=== PATIENT | female | born 1950 | race Caucasian/White ===

== ENCOUNTER → 2017-08-27 | Outpatient (CLI) | payer BC ==
--- NOTE | 2017-08-27 15:16 | RAD ---
DATE: 08/27/2017 EXAM: MAMMO JANE SCREENING BILATERAL HISTORY: Routine screening COMPARISON: 05/10/2016 This study was interpreted with the benefit of Computerized Aided Detection (CAD). The breast parenchyma shows scattered fibroglandular densities. Breast parenchyma level B. FINDINGS: 2-D and 3-D tomosynthesis imaging was performed in CC and MLO projections. No new or enlarging breast densities are seen. No suspicious microcalcifications are evident. IMPRESSION: Stable mammograms without evidence of malignancy. BI-RADS CATEGORY: 1 NEGATIVE RECOMMENDED FOLLOW-UP: 12M 12 MONTH FOLLOW-UP PQRS compliance statement: Patient information was entered into a reminder system with a target due date for the next mammogram. Mammography is a sensitive method for finding small breast cancers, but it does not detect them all and is not a substitute for careful clinical examination. A negative mammogram does not negate a clinically suspicious finding and should not result in delay in biopsying a clinically suspicious abnormality. "Our facility is accredited by the [employer] Mammography [employer]."
== END | disposition home or self-care (01) ==
LOC: MAMMO 11:10
PROVIDERS: ATTEND Internal Medicine
DX: Z12.31 Encounter for screening mammogram for malignant neoplasm of breast (principal)
CPT/HCPCS: 77063; 77067

== ENCOUNTER → 2019-06-29 | Outpatient (CLI) | payer BC, MEDICARE ==
--- NOTE | 2019-06-30 08:18 | RAD ---
DATE: June 29, 2019 EXAM: MAMMO JANE SCREENING BILATERAL HISTORY: Screening study. COMPARISON: 2015 and 2017 This study was interpreted with the benefit of Computerized Aided Detection (CAD). 2-D digital mammographic views of both breasts were performed in the CC and MLO projections. 3-D digital tomosynthesis images of both breasts were performed in the CC and MLO projections and reviewed on a computer workstation. FINDINGS: Breast Density: SCATTERED The breast parenchyma shows scattered fibroglandular densities. Breast parenchyma level B.. There are no dominant suspicious masses, suspicious microcalcifications or evidence of architectural distortion. IMPRESSION: No mammographic indicators for malignancy. BI-RADS CATEGORY: 1 NEGATIVE RECOMMENDED FOLLOW-UP: 12M 12 MONTH FOLLOW-UP PQRS compliance statement: Patient information was entered into a reminder system with a target due date June 30, 2020 for the next mammogram. Mammography is a sensitive method for finding small breast cancers, but it does not detect them all and is not a substitute for careful clinical examination. A negative mammogram does not negate a clinically suspicious finding and should not result in delay in biopsying a clinically suspicious abnormality. "Our facility is accredited by the [employer] Mammography [employer]." The patient's breast density may affect the ability of mammography to detect breast cancer. There are 4 categories of breast density, A, B, C and D. Breast density A means that most of the breast tissue is replaced with adipose tissue and therefore is not dense. Breast density B means that the breast tissue is mildly dense and scattered. Breast density C means that the breast tissue is heterogeneously dense. Breast density D means that the breast tissue is very dense. Breast densities especially C and D may decrease the sensitivity of mammography to detect breast cancer. Therefore, the patient may benefit from 3-D breast mammography (3D breast tomography) as a part of their screening mammogram. Insurance may or may not pay for this additional imaging. The patient's breast density based on today's mammogram is category B.
== END | disposition home or self-care (01) ==
LOC: MAMMO 13:09
PROVIDERS: ATTEND Internal Medicine
DX: Z12.31 Encounter for screening mammogram for malignant neoplasm of breast (principal)
CPT/HCPCS: 77063; 77067

== ENCOUNTER 2020-02-25 08:08 | Inpatient (IN) | payer BC, MEDICARE ==
[2020-02-25] VITALS (7 sets, daily range): BP systolic 136–188; BP diastolic 79–116
[~2020-02-25] VITALS: Ht 157.5 cm; Wt 73.9 kg
--- NOTE | 2020-02-25 09:21 | RAD ---
CT CODE STROKE HEAD WO History: Reason: RT ARM NUMBNESS, DIZZY, DIFFICTULY SWALLOWING / Spl. Instructions: / History: Comparison: None. Technique: Noncontrast CT imaging was performed of the head. Exposure: One or more of the following individualized dose reduction techniques were utilized for this examination: 1. Automated exposure control 2. Adjustment of the mA and/or kV according to patient size 3. Use of iterative reconstruction technique. Findings: No intracranial hemorrhage. No mass effect. No hydrocephalus. Extra-axial spaces are unremarkable. Imaged orbits are unremarkable. Imaged paranasal sinuses and mastoid air cells are clear. No acute calvarial fracture. Impression: 1. No acute intracranial abnormality. FOR INTERNAL CODING PURPOSES Critical result: Findings discussed with ED [facility] at 02/25/2020 9:17 AM. RESULT CODE: (C) 1. Electronically signed by: Dada Caban DO (02/25/2020 9:18 AM) [id number]
--- NOTE | 2020-02-25 09:22 | RAD ---
EXAMINATION: CHEST AP ONLY CLINICAL HISTORY: Reason: WEAKNESS / Spl. Instructions: / History: EXAM DATE/TIME: 02/25/2020 12:00 AM COMPARISON: 10/27/2013 FINDINGS: Lines, Tubes, and Devices: None. Cardiomediastinal Silhouette: Within normal limits. Lungs and Pleura: No evidence of focal airspace consolidation or pleural effusion. Minimal curvilinear subsegmental atelectasis and/or scarring of right lung base. Pulmonary vasculature unremarkable. Bones and Soft Tissues: No acute osseous abnormality. IMPRESSION: No evidence of acute cardiopulmonary abnormality. Electronically signed by: Jacky Bennett DO (02/25/2020 9:19 AM) [id number]
[2020-02-25 09:41] LABS: BASO # 0.1 x10^3/uL (0.0-0.2); BASO % 1 % (0-3); EOS % 0 % (0-3); HEMATOCRIT 44.9 % (36.0-47.0); HEMOGLOBIN 14.5 g/dL (12.0-15.5); LYMPH # 1.7 x10^3/uL (1.0-4.8); LYMPH % 17 % (24-48); MEAN CORPUSCULAR HEMOGLOBIN 29 pg (25-35); MEAN CORPUSCULAR HGB CONC 32 g/dL (31-37); MEAN CORPUSCULAR VOLUME 91 fL (79-100); MONO # 0.4 x10^3/uL (0.0-1.1); MONO % 4 % (0-9); NEUT % 78 % (31-73); PLATELET COUNT 200 x10^3/uL (140-400); RED BLOOD COUNT 4.97 x10^6/uL (3.50-5.40); RED CELL DISTRIBUTION WIDTH 13.3 % (11.5-14.5); WHITE BLOOD COUNT 10.2 x10^3/uL (4.0-11.0)
[2020-02-25 09:50] LABS: CALCIUM 9.6 mg/dL (8.5-10.1); GFR 55.3; POTASSIUM 3.7 mmol/L (3.5-5.1)
[2020-02-25] MEDS ORDERED: IOHEXOL 350 MG/ML 100 ML VIAL. IV ONE (10:00)
[2020-02-25] MEDS ORDERED: IV NORMAL SALINE 1,000ML 1,000 ML IV ONE (10:00)
--- NOTE | 2020-02-25 10:13 | EKG ---
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
[2020-02-25] MEDS ORDERED: ASPIRIN 325 MG TABLET PO ONE (10:30)
--- NOTE | 2020-02-25 10:50 | RAD ---
EXAM: CT Angiogram of the Head and Neck INDICATION: Reason: dizineess, R arm numbness TECHNIQUE: CT images were obtained through the head per standard CTA protocol. Multiplanar and 3D reformatted images were generated from the CT dataset on an independent workstation. All CT scans performed at this facility utilize dose optimization techniques as appropriate to the exam, including the following: Automated exposure control and adjustment of the mA and/or KV according to patient size (this includes techniques or standardized protocols for targeted exams where dose is indication/reason for exam). IV CONTRAST: Administered COMPARISON: None FINDINGS: CTA HEAD: No high-grade large vessel stenosis, proximal or branch vessel occlusion, aneurysm, or vascular malformation. However, hypovascular mass in the left middle cranial fossa anterior to the temporal tip with a broad dural attachment along the left sphenoid wing is noted measuring 2.0 x 1.1 cm and 1.5 cm craniocaudal. It has parasitized arterial feeders from the left MCA M2 branches. ANTERIOR CIRCULATION: Anterior and middle cerebral arteries are widely patent. ANTERIOR COMMUNICATING ARTERY: Patent. POSTERIOR COMMUNICATING ARTERIES: Present bilaterally and patent. POSTERIOR CIRCULATION: Vertebral and basilar arteries are widely patent. Bilateral posterior inferior cerebellar arteries (PICAs), anterior inferior cerebellar arteries (AICAs), and superior cerebellar arteries (SCAs) are visualized and patent. OTHER: No abnormal brain parenchymal enhancement. The paranasal sinuses, mastoid air cells, and tympanic cavities are clear. NECK CTA: AORTA: 3 vessel configuration of arch. No dissection or acute aortic injury. No hemodynamically significant great vessel origin stenosis. RIGHT CAROTID: Common and internal carotid arteries are widely patent, without evidence of flow limiting stenosis or dissection. LEFT CAROTID: Common and internal carotid arteries are widely patent, without evidence of flow limiting stenosis or dissection. VERTEBRAL ARTERIES: Codominant. No evidence of dissection or flow limiting stenosis. SUBCLAVIAN ARTERIES:Subclavian arteries are patent without stenosis. SOFT TISSUES: Soft tissues are unremarkable. Lung apices are clear. Where applicable, evaluation of ICA stenosis was performed using NASCET criteria, where the site of greatest stenosis is compared to the diameter of the ICA distal to the carotid bulb. 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 Otherwise normal CTA of the head and neck. FOR INTERNAL CODING PURPOSES Critical result: Findings discussed with SAMUEL DE JESUS at 02/25/2020 10:45 AM. RESULT CODE: (C) Electronically signed by: Radha Barnes MD (02/25/2020 10:47 AM) [id number]
--- NOTE | 2020-02-25 10:58 | PHYS DOC ---
General Adult EDM: Chief Complaint: DIZZY/LIGHT HEADED HPI: HPI: History obtained from the patient. Patient is a [age]-year-old female past medical history significant for hypertension presents with chief complaint dizziness and left arm numbness. Patient states that approximately 4 hours prior to arrival she began developing room spinning sensation. States it is somewhat difficult ambulate and falls to the left. She also notes left arm numbness. Denies any weakness. Denies falls or head trauma. Denies syncope. Denies headache. Denies any vomiting. Denies ringing in the ears. Denies any chest pain or shortness of breath. Denies any history of stroke. Does note that she has felt generally fatigued as well with some sore throat. Denies known exposure to coronavirus. States she has been taking her medication as prescribed. Review of Systems: Review of Systems: Constitutional: Denies fever or chills Eyes: Denies change in visual acuity HENT: Denies nasal congestion or sore throat Respiratory: Denies cough or shortness of breath Cardiovascular: Denies chest pain or edema GI: Denies abdominal pain, nausea, vomiting, bloody stools or diarrhea : Denies dysuria Musculoskeletal: Denies back pain or joint pain Integument: Denies rash Neurologic: Positive for dizziness and numbness Endocrine: Denies polyuria or polydipsia Lymphatic: Denies swollen glands Psychiatric: Denies depression or anxiety Heart Score: Risk Factors: Risk Factors: DM, Current or recent (<one month) smoker, HTN, HLP, family history of CAD, obesity. Risk Scores: Score 0 - 3: 2.5% MACE over next 6 weeks - Discharge Home Score 4 - 6: 20.3% MACE over next 6 weeks - Admit for Clinical Observation Score 7 - 10: 72.7% MACE over next 6 weeks - Early Invasive Strategies Current Medications: Current Meds: Current Medications Medications (Trade) Dose Ordered Sig/Jyothi Start Time Stop Time Status Last Admin Dose Admin Aspirin (Shubham Aspirin) 325 mg 1X ONCE 02/25/20 10:30 02/25/20 10:31 DC Iohexol (Omnipaque 350 Mg/ml) 100 ml 1X ONCE 02/25/20 10:00 02/25/20 10:03 DC Sodium Chloride 1,000 ml @ 1,000 mls/hr 1X ONCE 02/25/20 10:00 02/25/20 10:59 Allergies: Allergies: Allergies Uncoded Allergies Type Severity Reaction Last Updated Verified PENICILLIN Allergy Unknown Diarrhea 02/25/20 Physical Exam: PE: Constitutional: Well developed, well nourished, no acute distress, non-toxic appearance. [] HENT: Normocephalic, atraumatic, bilateral external ears normal, oropharynx moist, no oral exudates, nose normal. [] Eyes: PERRLA, EOMI, conjunctiva normal, no discharge. [] Neck: Normal range of motion, no tenderness, supple, no stridor. [] Cardiovascular:Heart rate regular rhythm, no murmur [] Lungs & Thorax: Bilateral breath sounds clear to auscultation [] Abdomen: soft, no tenderness, no masses, no pulsatile masses. [] Skin: Warm, dry, no erythema, no rash. [] Back: No tenderness, no CVA tenderness. [] Extremities: No tenderness, no cyanosis, no clubbing, ROM intact, no edema. [] Neurologic alert with intact cognitive function. No aphasia, dysarthria, or neglect. GCS 15. Pupils 3 mm briskly reactive b/l. No APD present. Cranial nerves 2-12 grossly intact; no facial asymmetry present, tongue midline, shoulder shrugging strength intact. Strength 5/5 and symmetric throughout. Light touch sensation intact throughout. Cerebellar testing appropriate without evidence of dysdiadochokinesia. DTR's 2+ in all 4 extremities. Negative pronator drift bilaterally. Gait deferred Psychologic: Affect normal, judgement normal, mood normal. [] Current Patient Data: Labs: Laboratory Tests Test 02/25/20 09:10 02/25/20 09:18 Glucose (Fingerstick) 167 mg/dL (70-99) H White Blood Count 10.2 x10^3/uL (4.0-11.0) Red Blood Count 4.97 x10^6/uL (3.50-5.40) Hemoglobin 14.5 g/dL (12.0-15.5) Hematocrit 44.9 % (36.0-47.0) Mean Corpuscular Volume 91 fL (79-100) Mean Corpuscular Hemoglobin 29 pg (25-35) Mean Corpuscular Hemoglobin Concent 32 g/dL (31-37) Red Cell Distribution Width 13.3 % (11.5-14.5) Platelet Count 200 x10^3/uL (140-400) Neutrophils (%) (Auto) 78 % (31-73) H Lymphocytes (%) (Auto) 17 % (24-48) L Monocytes (%) (Auto) 4 % (0-9) Eosinophils (%) (Auto) 0 % (0-3) Basophils (%) (Auto) 1 % (0-3) Neutrophils # (Auto) 8.0 x10^3uL (1.8-7.7) H Lymphocytes # (Auto) 1.7 x10^3/uL (1.0-4.8) Monocytes # (Auto) 0.4 x10^3/uL (0.0-1.1) Eosinophils # (Auto) 0.0 x10^3/uL (0.0-0.7) Basophils # (Auto) 0.1 x10^3/uL (0.0-0.2) Sodium Level 141 mmol/L (136-145) Potassium Level 3.7 mmol/L (3.5-5.1) Chloride Level 102 mmol/L (98-107) Carbon Dioxide Level 26 mmol/L (21-32) Anion Gap 13 (6-14) Blood Urea Nitrogen 15 mg/dL (7-20) Creatinine 1.0 mg/dL (0.6-1.0) Estimated GFR (Cockcroft-Gault) 55.3 Glucose Level 175 mg/dL (70-99) H Calcium Level 9.6 mg/dL (8.5-10.1) Magnesium Level 2.0 mg/dL (1.8-2.4) Troponin I Quantitative 0.029 ng/mL (0-0.055) EKG: EKG: [] EKG consistent with sinus tachycardia. Left axis noted. Intervals normal. No acute ischemic changes appreciated. ST flattening appreciated in the lateral precordial leads. Radiology/Procedures: Radiology/Procedures: [address] [address] IMAGING REPORT Signed PATIENT: ALIREZA CHAO ACCOUNT: [id number] : 1950 LOCATION: ER AGE: 69 SEX: F EXAM STATUS: REG ER ORD. PHYSICIAN: SAMUEL DE JESUS DO REASON: dizineess, R arm numbness PROCEDURE: CT ANGIOGRAPHY HEAD AND NECK EXAM: CT Angiogram of the Head and Neck INDICATION: Reason: dizineess, R arm numbness TECHNIQUE: CT images were obtained through the head per standard CTA protocol. Multiplanar and 3D reformatted images were generated from the CT dataset on an independent workstation. All CT scans performed at this facility utilize dose optimization techniques as appropriate to the exam, including the following: Automated exposure control and adjustment of the mA and/or KV according to patient size (this includes techniques or standardized protocols for targeted exams where dose is indication/reason for exam). IV CONTRAST: Administered COMPARISON: None FINDINGS: CTA HEAD: No high-grade large vessel stenosis, proximal or branch vessel occlusion, aneurysm, or vascular malformation. However, hypovascular mass in the left middle cranial fossa anterior to the temporal tip with a broad dural attachment along the left sphenoid wing is noted measuring 2.0 x 1.1 cm and 1.5 cm craniocaudal. It has parasitized arterial feeders from the left MCA M2 branches. ANTERIOR CIRCULATION: Anterior and middle cerebral arteries are widely patent. ANTERIOR COMMUNICATING ARTERY: Patent. POSTERIOR COMMUNICATING ARTERIES: Present bilaterally and patent. POSTERIOR CIRCULATION: Vertebral and basilar arteries are widely patent. Bilateral posterior inferior cerebellar arteries (PICAs), anterior inferior cerebellar arteries (AICAs), and superior cerebellar arteries (SCAs) are visualized and patent. OTHER: No abnormal brain parenchymal enhancement. The paranasal sinuses, mastoid air cells, and tympanic cavities are clear. NECK CTA: AORTA: 3 vessel configuration of arch. No dissection or acute aortic injury. No hemodynamically significant great vessel origin stenosis. RIGHT CAROTID: Common and internal carotid arteries are widely patent, without evidence of flow limiting stenosis or dissection. LEFT CAROTID: Common and internal carotid arteries are widely patent, without evidence of flow limiting stenosis or dissection. VERTEBRAL ARTERIES: Codominant. No evidence of dissection or flow limiting stenosis. SUBCLAVIAN ARTERIES:Subclavian arteries are patent without stenosis. SOFT TISSUES: Soft tissues are unremarkable. Lung apices are clear. Where applicable, evaluation of ICA stenosis was performed using NASCET criteria, where the site of greatest stenosis is compared to the diameter of the ICA distal to the carotid bulb. 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 Otherwise normal CTA of the head and neck. FOR INTERNAL CODING PURPOSES Critical result: Findings discussed with SAMUEL DE JESUS at 02/25/2020 10:45 AM. RESULT CODE: (C) Electronically signed by: Mary Barnes MD (02/25/2020 10:47 AM) [id number] DICTATED AND SIGNED BY: MARY BARNES MD DATE: 02/25/20 1047 CC: SAMUEL DE JESUS DO; CARLO HARRIS MD ~ [] Course & Med Decision Making: Course & Med Decision Making Pertinent Labs and Imaging studies reviewed. (See chart for details) [] Patient is a 69-year-old female who presents with chief complaint of dizziness and left arm numbness. Initial NIH notable for 1-2 sensory loss. No focal deficits appreciated. Given the patient's symptoms and acuity of onset strokelike was called. Noncontrast head CT was unremarkable. Given the patient reported dizziness and concern for posterior circulation involvement CT angiogram of the head neck was also obtained. 2 cm meningioma noted in the left middle cerebral fossa. Unclear whether this causing her symptoms. I did discuss the case with neurosurgical RIKA Islas. After discussion with Dr. Fuller patient does not require emergent neurosurgical consultation. MRI however is indicated. I did also discuss case with neurology at [facility]. Patient will be hospitalized at [facility] for further care. Patient did decline aspirin administration in the emergency department. Aidaon Disclaimer: Greg Disclaimer: This electronic medical record was generated, in whole or in part, using a voice recognition dictation system. Departure Departure: Impression: Primary Impression: Dizziness Additional Impressions: Numbness and tingling in left arm Meningioma Disposition: ADMITTED INPT THIS HOSP Condition: STABLE Referrals: CARLO HARRIS MD (PCP) NIHSS - ED NIH Stroke Scale: NIH Stroke Scale Response (Comments) Value Level of Consciousness: 0 Alert/Responsive 0 LOC Questions: 0 Answers both correctly 0 LOC Commands: 0 Performs both tasks 0 Best Gaze: 0 Normal 0 Visual: 0 No visual loss 0 Facial Palsy: 0 Normal, symmetrical 0 Motor - Left Arm 0 No drift 0 Motor - Right Arm 0 No drift 0 Motor - Left Leg 0 No drift 0 Motor: Right Leg 0 No drift 0 Limb Ataxia: 0 Absent 0 Sensory: 1 Mid to moderate loss 1 Best Language: 0 Normal 0 Dysathria: 0 Normal 0 Extinction and Inattention: 0 Normal 0 Total 1 SAMUEL DE JESUS DO Feb 25, 2020 10:58
[2020-02-25 11:50] LABS: BILIRUBIN,URINE NEG (NEG); CLARITY,URINE CLEAR; COLOR,URINE STRAW; GLUCOSE,URINE NEG (NEG)
[2020-02-25 11:51] LABS: BACTERIA,URINE FEW /HPF (0-FEW); NITRITE,URINE NEG (NEG); RBC,URINE 0 /HPF (0-2); SQUAMOUS EPITHELIAL CELL,UR FEW /LPF; UROBILINOGEN,URINE 0.2 mg/dL (0.2 mg/dL); WBC,URINE 0 /HPF (0-4)
--- NOTE | 2020-02-25 14:15 | NUR ---
NURSING NOTE CONSULT CONSULT PAGED TO DR BEEBE. CANDIE GONZALEZ.
--- NOTE | 2020-02-25 14:52 | NUR ---
NURSING NOTE ADMIT PT ADMIT TO ROOM 120 FOR DX OF DIZZINESS WITH CONSULT TO SPEECH AND DR BEEBE. PT C/O WEAKNESS, RIGHT ARM NUMBNESS, HOARSENESS, SINUS DRAINAGE, TROUBLE BREATHING, AND TROUBLE SWALLOWING. PT REPORTS HX OF GERD, HLD, HERNIA, HYSTER, HTN, RECURRENT LARYNGITIS. PT FAILED BEDSIDE SWALLOW STUDY IN ED. SPEECH CONSULTED. PT CURRENTLY NPO. PT IS CURRENTLY A PUI. WILL CONTINUE TO MONITOR. CANDIE GONZALEZ.
[2020-02-25] MEDS ORDERED: HYDR12.58 PO (14:58)
[2020-02-25] MEDS ORDERED: ATOR20TA58 PO (14:58)
[2020-02-25] MEDS ORDERED: AMIT25TA PO (14:58)
[2020-02-25] MEDS ORDERED: ESTR1.25 PO (14:58)
[2020-02-25] MEDS ORDERED: METO-247 PO (14:58)
[2020-02-25] MEDS ORDERED: ESOM40CA PO (14:58)
[2020-02-25] MEDS ORDERED: ALPR0.254 PO (14:58)
[2020-02-25] MEDS ORDERED: VALA10008 PO (14:58)
[2020-02-25] MEDS ORDERED: LOSA50TA86 PO (14:58)
--- NOTE | 2020-02-25 15:12 | HP ---
ADMIT DATE: 02/25/2020 HISTORY OF PRESENT ILLNESS: The patient is a 69-year-old female patient who presented to the Emergency Room this morning with a complaint of feeling dizzy with left arm numbness. The patient states that approximately 4 hours prior to arrival, she had begun developing room spinning sensation, states it is somewhat difficult to ambulate and falls to the left. She also notes left arm numbness. Denies any weakness. Denies any falls or head trauma. Denied any syncope. Denies any headache. She does note that she has felt generally fatigued as well with some sore throat. She apparently has had her flu shot as well as shingles shot at the same time a week ago and for 4 days, she developed a bad headache. She also complained of hoarseness of voice, but she said that she has also hiatal hernia and acid reflux that caused hoarseness of voice. She was followed by Dr. Aranda and she was on proton pump inhibitors twice a day and now she is getting it once a day. She was basically evaluated extensively in the Emergency Room and has had lab work, which basically is unremarkable. Urinalysis was unremarkable. 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 The patient was admitted for further evaluation and treatment. PAST MEDICAL HISTORY: Significant for hypertension, hyperlipidemia, hiatal hernia and gastroesophageal reflux disease. PAST SURGICAL HISTORY: Significant for total abdominal hysterectomy, bilateral salpingo-oophorectomy. ALLERGIES: SHE IS ALLERGIC TO PENICILLIN. MEDICATIONS: She is currently on following medications: The patient is Dr. Gamez's and we will call his office to get the list of medication. FAMILY HISTORY: She has one brother older and has coronary artery disease and status post myocardial infarction x 2. Father at the age of 75 because of liver cirrhosis. Mother of lung cancer. SOCIAL HISTORY: She is , has 2 sons. Never smoked. Drinks alcohol very occasionally. 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 She has retired about 3 years ago. REVIEW OF SYSTEMS: The patient does have blurring of vision and had history of diplopia before. Denied any glaucoma or macular degeneration. Denied any earache, tinnitus or sensorineural deafness. Denied any nosebleeds, stuffy nose or postnasal drip. Denied any sore throat, sore tongue, toothache, hoarseness of voice, but she did complain of difficulty swallowing and hoarseness of voice. Denied any nausea, vomiting, diarrhea or constipation. Denied any hematemesis, melena or hematochezia. Denied any dysuria, frequency or hematuria. Denied any chest pain, shortness of breath, orthopnea or paroxysmal nocturnal dyspnea. Denied any cough, phlegm or hemoptysis. PHYSICAL EXAMINATION: GENERAL: On arrival to the Emergency Room, she looked well and was clearly in no apparent respiratory distress. No pallor, jaundice, cyanosis or thyromegaly. No jugular venous distention. No lower limb edema. VITAL SIGNS: Her heart rate was 106, blood pressure was 181/104, temperature was 98.1, respiratory rate was 21 and oxygen saturation was 96% on room air. HEAD, EYES, EARS, NOSE AND THROAT: Showed normocephalic, atraumatic. NECK: Supple. HEART: Showed normal first and second heart sounds. No gallop or murmur. CHEST: Clear to auscultation. No crepitation or rhonchi. ABDOMEN: Distended, soft, nontender. NEUROLOGIC: She was awake, alert, responding appropriately. All her cranial nerves were intact. She moves all her extremity, although she has obviously difficulty lifting her legs from the floor to the bed. I did an extensive neurological exam, which showed that the patient's cranial nerves are all normal. She has no diplopia, no nystagmus. The strength in both upper and lower extremities is normal. LABORATORY DATA: Her lab work on arrival showed that her white cell count was 10,200, hemoglobin 14, hematocrit 44, MCV 91 and platelet count 200,000 with normal manual differential. Her serum sodium was 141, potassium 3.7, chloride 102, bicarbonate 26, anion gap of 13, BUN 15, creatinine 1, estimated GFR was 55. Her glucose 175, calcium was 9.6, magnesium was 2. Troponin was 0.029. ASSESSMENT AND PLAN: In summary, this is a 69-year-old female patient who basically presented with dizziness and lightheadedness. She stated that she felt things spinning around and has difficulty ambulating and falls to the left. She has also left arm numbness. My plan is to get all her medication list from her doctor, Dr. Gamez. We will transfer her to the ICU to be closely monitored and keep her n.p.o. for now. We will get Speech Therapy to see her and also get Dr. Berry to evaluate her. I am not sure whether this is just a form of the meningioma that she has, it is in the left side and if any effect she has would have been in the right side and probably this is an incidental finding and there is no evidence of the raised intracranial pressure or midline shift. She had received her flu shot and also chickenpox or shingles shot together about a week ago and since then she started developing this and I am just concerned about some form of neuropathy that might be induced by the vaccine, although she does not seem to have the typical picture of ascending paralysis of Guillain-[place] syndrome. SEUN BARFIELD MD DR: MARYJANE/shirley JOB#: [id number] / [id number]
[2020-02-25] MEDS ORDERED: ALPRAZolam 0.25 MG TABLET PO PRN (16:15)
[2020-02-25] MEDS: IV NORMAL SALINE 1,000ML 1,000 ML IV SCH (17:15)
[2020-02-25] MEDS ORDERED: FAMOTIDINE 20 MG/2 ML VIAL IVP ONE ×2 (18:15→18:30)
[2020-02-25] MEDS ORDERED: methylPREDNISolone SOD SUCC PF 125 MG/2 ML VIAL. IV ONE ×2 (18:15→18:30)
[2020-02-25] MEDS ORDERED: diphenhydrAMINE 50 MG/ML VIAL IVP ONE (18:15)
[2020-02-25] MEDS ORDERED: diphenhydrAMINE 50 MG/ML VIAL ONE (18:19)
--- NOTE | 2020-02-25 18:29 | NUR ---
NURSING NOTE PT C/O SOA AND UNABLE TO BREATHE WELL. PT OXYGEN 94% RA, PT PUT ON 2 L OXYGEN FOR COMFORT. ORDER OBTAINED FOR SOLUMED 125, PEPCID 20, AND BENADRYL 50. IV MEDS PUSHED. PT TO TRANSFER TO ICU. CANDIE GONZALEZ.
[2020-02-25] MEDS ORDERED: diphenhydrAMINE 50 MG/ML VIAL IM ONE (18:30)
[2020-02-25] MEDS: PANTOPRAZOLE IV 40 MG VIAL. IVP SCH (20:49)
[2020-02-25] MEDS ORDERED: AMITRIPTYLINE HCL 25 MG TABLET PO SCH (21:00)
[2020-02-25] MEDS: valACYclovir 500 MG TABLET. PO SCH (21:00)
[2020-02-26] VITALS (16 sets, daily range): BP systolic 127–172; BP diastolic 68–100
--- NOTE | 2020-02-26 02:38 | CONS ---
DATE OF CONSULTATION: 02/25/2020 NEUROLOGY CONSULTATION REFERRING PHYSICIAN: Dr. Kong. REASON FOR CONSULTATION: Impaired balance and dizziness. HISTORY OF PRESENT ILLNESS: This is a 69-year-old right-handed female who was admitted through Emergency Room this morning after she presented with chief complaints of feeling dizzy and unsteady. The patient described her dizziness as spinning sensation that began 4 hours prior to arrival to Emergency Room. She has recently noticed difficulty walking and tendency to fall to the left side. She also complains of left upper extremity numbness and paresthesia. She denies weakness of the lower extremities, head injuries or fall. The patient stated she received flu and shingles shot in the last week. She has recently noticed hoarseness of the voice and feeling she is short of breath; however, her oxygen saturation ranged from 96-98% on room air. In the Emergency Room, extensive investigation revealed normal blood workup and urinalysis, but initial head CT scan revealed no acute intracranial process. CT angio of the neck revealed left middle cranial fossa having a meningioma measuring approximately 2 cm. Otherwise, CT angio of the neck and head revealed no significant abnormalities. Currently, she denies headaches, visual disturbances, nausea, vomiting, chest pain, or palpitations. PAST MEDICAL HISTORY: Significant for GERD, hyperlipidemia, hypertension and hiatal hernia. Positive for anxiety disorder. PAST SURGICAL HISTORY: Positive for abdominal hysterectomy with total abdominal hysterectomy. FAMILY HISTORY: Positive for coronary artery disease and myocardial infarction in her brother. Her father at the age of 75 from liver cirrhosis and mother of lung cancer. SOCIAL HISTORY: The patient is . She has 2 sons. She denies smoking, but she drinks alcohol occasionally. She denies illegal drug use. REVIEW OF SYSTEMS: A 12-point review of system was performed as mentioned above in the history of present illness, otherwise unremarkable. CURRENT MEDICATIONS: Metoprolol 100 mg daily, hydrochlorothiazide 12.5 mg daily, Premarin 1.25 mg daily, losartan 50 mg daily, Lipitor 20 mg daily, Valtrex 1000 mg b.i.d., amitriptyline 25 mg at bedtime, Protonix 40 mg daily, alprazolam 0.125 mg p.r.n. for anxiety. ALLERGIES: SHE IS ALLERGIC TO PENICILLIN, CODEINE. PHYSICAL EXAMINATION: VITAL SIGNS: Well-developed, well-nourished female, not in acute distress. She weighs 73.9 kilos, height 62 inches. VITAL SIGNS: Blood pressure 157/95, respiratory rate 18, pulse is 106, temperature is 97.8, oxygen saturation 95% on room air. HEENT: Normocephalic, atraumatic, otherwise unremarkable. NECK: Supple. Negative for carotid bruit, lymphadenopathy or thyromegaly. LUNGS: Clear to A and P. CARDIOVASCULAR: Regular rhythm, normal S1, S2. There is no S3, S4 or murmurs. ABDOMEN: Soft. Bowel sounds positive. EXTREMITIES: Negative for cyanosis, clubbing or pitting edema. NEUROLOGICAL: MENTAL STATUS: The patient is alert and oriented x 3. Speech is fluent. There is no language dysfunction. Memory is intact. Judgment and abstract thinking are normal. The patient denies hallucination or delusion. However, she appears to be very anxious. CRANIAL NERVES: Visual davila are full. The pupils are reactive to light and accommodation. The extraocular movements are intact. There is no nystagmus. There is no facial motor or sensory deficit. Hearing is intact bilaterally. The palate is elevated symmetrically. Sternocleidomastoid muscles are powerful bilaterally. The patient shrugs her shoulders symmetrically, protrudes her tongue in the midline without fasciculation or atrophy. MOTOR EXAMINATION: No focal muscle bulk wasting. The tone is normal. The strength is 4/5 throughout. SENSORY EXAMINATION: Revealed normal pinprick, light touch, vibratory and position senses. Deep tendon reflexes were symmetric and hypoactive with absent Achilles responses. GAIT: Not tested. LABORATORY DATA: CBC revealed white blood cells of 10.2 thousand, hemoglobin 14.5, hematocrit is 44.9, platelet count 200,000. Chemistry revealed sodium of 141, potassium 3.7, chloride 102, CO2 of 26, BUN 15, creatinine 1.1, glucose 175 and calcium 9.6. Troponin level is 0.029. Urinalysis negative for urinary tract infections. EKG, sinus tachycardia, otherwise unremarkable. A head CT scan and CT angio of the neck and head revealed evidence of 2 cm meningioma in the left middle cranial fossa, otherwise unremarkable as mentioned above in history of present illness. IMPRESSION: 1. Acute onset of dizziness and impaired balance with subjective numbness and paresthesia of the left upper extremity with abnormal head CT scan consistent with small meningioma in the left middle fossa. 2. Anxiety disorder. 3. Multiple medical problems include hypertension, hyperlipidemia, hyperglycemia and GERD. 4. Status post flu and shingles shot last week raise a question of possible adverse reaction to shock; however, there is no clear evidence at this time of Guillain-[place] syndrome. RECOMMENDATIONS: 1. The patient has been transferred to ICU for close observation to her pulmonary function and breathing along with oxygen saturation monitoring throughout the night. 2. We will continue with current management initiated by Dr. Kong. 3. Physical therapy evaluation. M Ross BEEBE MD DR: SHANTE/shirley JOB#: [id number] / [id number]
[2020-02-26] MEDS: IV NORMAL SALINE 1,000ML 1,000 ML IV SCH ×2 (03:25→13:22)
[2020-02-26 06:58] LABS: BASO % 0 % (0-3); EOS % 0 % (0-3); HEMATOCRIT 44.1 % (36.0-47.0); HEMOGLOBIN 14.4 g/dL (12.0-15.5); LYMPH # 0.9 x10^3/uL (1.0-4.8); LYMPH % 6 % (24-48); MEAN CORPUSCULAR HEMOGLOBIN 29 pg (25-35); MEAN CORPUSCULAR HGB CONC 33 g/dL (31-37); MEAN CORPUSCULAR VOLUME 90 fL (79-100); MONO # 0.3 x10^3/uL (0.0-1.1); MONO % 2 % (0-9); NEUT # 13.6 x10^3uL (1.8-7.7); NEUT % 92 % (31-73); PLATELET COUNT 218 x10^3/uL (140-400); RED CELL DISTRIBUTION WIDTH 13.9 % (11.5-14.5); WHITE BLOOD COUNT 14.7 x10^3/uL (4.0-11.0)
[2020-02-26 07:11] LABS: CALCIUM 8.5 mg/dL (8.5-10.1); CREATININE 0.9 mg/dL (0.6-1.0); GFR 62.5; POTASSIUM 3.4 mmol/L (3.5-5.1)
[2020-02-26] MEDS ORDERED: PANTOPRAZOLE 40 MG TABLET. PO SCH (07:30)
[2020-02-26] MEDS: PANTOPRAZOLE IV 40 MG VIAL. IVP SCH (08:32)
[2020-02-26] MEDS ORDERED: ATORVASTATIN CALCIUM 20 MG TABLET PO SCH (09:00)
[2020-02-26] MEDS ORDERED: hydroCHLOROthiazide 12.5 MG CAPSULE PO SCH (09:00)
[2020-02-26] MEDS ORDERED: ESTROGENS, CONJUGATED 0.625 MG TABLET PO SCH (09:00)
[2020-02-26] MEDS ORDERED: METOPROLOL SUCC 24HR ER 50 MG TAB.ER.24H. PO SCH (09:00)
[2020-02-26] MEDS: valACYclovir 500 MG TABLET. PO SCH (09:00)
[2020-02-26] MEDS ORDERED: LOSARTAN 50 MG TABLET. PO SCH (09:00)
--- NOTE | 2020-02-26 09:15 | NUR ---
PATIENT HAVING DIFFICULTY SWALLOWING. I WILL NOT BE ADMINISTERING ANY PO MEDICATIONS. PATIENT IS OKAY WITH THAT. PATIENT WANTS TO KNOW IF THERE IS ANYWAY FOR HER TO RECEIVE THESE MEDS THROUGH HER IV. I WILL CHECK WITH PHYSICIAN
--- NOTE | 2020-02-26 12:30 | NUR ---
SPEECH THERAPIST KIMBERLY RECOMMENDED PATIENT TRY ICE CHIPS. PATIENT DID NOT TOLERATE WELL. WAITING TO SEE SPEECH TO DO AN IN MORE DEPTH SWALLOW SCREEN.
[2020-02-26 14:00] LABS: % BANDS 1 % (0-9); % LYMPHS 7 % (24-48); % MONOS 1 % (0-10); % SEGS 91 % (35-66)
[2020-02-26 14:01] LABS: PLT ESTIMATE ADEQUATE (ADEQUATE)
[2020-02-26] MEDS: LABETALOL 20 MG/4 ML DISP.SYRIN. IVP PRN ×2 (14:09→20:43)
--- NOTE | 2020-02-26 15:49 | NUR ---
RECEIVED A CALL FROM SPEECH STATING THAT IT IS TOO LATE IN THE DAY FOR THEM TO COME SEE THE PATIENT SINCE THEY ARE STILL AT [facility]. SPEECH THERAPIST KIMBERLY STATED THAT A REPEAT RN SWALLOW STUDY WILL BE NECESSARY. KIMBERLY STATED THAT SHE RECOMMENDS NECTAR LIQUIDS FOR THE SECOND RN SWALLOW STUDY. PATIENT TRIED AND FAILED. PATIENT STATED THAT "IT FEELS LIKE IT GOT STUCK IN MY THROAT AND I JUST SPIT IT ALL OUT WHEN I COUGH"
[2020-02-26] MEDS ORDERED: KETOROLAC 30 MG/ML VIAL. IM ONE (18:45)
--- NOTE | 2020-02-26 19:01 | NUR ---
PATIENT VERY PLEASANT. 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 BARFIELD ON BOARD OF GETTING [facility]ING. WILL PASS ON TO [facility]CH[facility]
--- NOTE | 2020-02-26 19:58 | NUR ---
Report given to CANDIE Pike for transfer to room [address] [facility]. [facility] called at this time.
--- NOTE | 2020-02-26 20:02 | PN ---
DATE: 02/26/2020 SUBJECTIVE: The patient continues to feel very tired and generalized weak and having difficulty with even swallowing her thick saliva. She continues to have shortness of breath, numbness and tingling of the upper and lower extremities. Currently, she denies headaches, visual disturbances, nausea, vomiting, or abdominal pain. OBJECTIVE: GENERAL: A well-developed, well-nourished female, not in acute distress. VITAL SIGNS: Temperature is 98.6, oxygen saturation is 98% on 2 liters by nasal cannula, respiratory rate 18, pulse is 97 and regular. HEENT: Normocephalic, atraumatic, otherwise unremarkable. NECK: Supple. Negative for carotid bruit, lymphadenopathy or thyromegaly. LUNGS: Diminished breath sounds, but no wheezing. CARDIOVASCULAR: Regular rate and rhythm, normal S1 and S2. ABDOMEN: Soft. Bowel sounds positive. EXTREMITIES: Negative for cyanosis, clubbing or edema. NEUROLOGICAL EXAM: Mental Status: The patient is alert and oriented x 3. Speech is fluent. There is no language dysfunction, otherwise unremarkable. Cranial nerves are intact. No nystagmus. Motor examination: No focal muscle bulk was seen. The strength was 4/5 throughout. Sensory examination revealed normal pinprick, light touch, vibratory and position senses. Deep tendon reflexes were symmetric and hypoactive with absent Achilles responses. Gait not tested. LABORATORY DATA: CBC revealed white blood cells of 14.7 thousand, hemoglobin 14.4, hematocrit 44.1, and platelet count 218,000. Chemistry revealed sodium of 141, potassium 3.4, chloride 104, CO2 of 22, BUN 12, creatinine 0.9, glucose 171, and calcium 8.5. Troponin level is 0.025 and magnesium is 2. IMPRESSION: 1. Acute onset of dizziness and unsteady gait with generalized weakness after a few days from having a flu vaccine and shingles vaccine; however, the shingles vaccine is relatively safe. The patient might have some side effects of the flu shot. 2. We are waiting for the results of COVID-19 -- coronary test still pending. 3. Multiple medical problems includes hypertension, hyperlipidemia, gastroesophageal reflux disease, hyperglycemia, rule out diabetes mellitus, anxiety disorder. RECOMMENDATIONS: 1. Continue with current conservative management initiated by Dr. Kong. 2. Await for swallowing test by speech therapy Await for COVID-19 results. 3. Physical therapy evaluation. M Ross BEEBE MD DR: SHANTE/shirley JOB#: [id number] / [id number]
--- NOTE | 2020-02-26 20:57 | NUR ---
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 Pt's belongings with patient. Called nurse to tell her pt is on her way. notified of transfer.
== END 2020-02-26 21:00 | disposition short-term general hospital (02) | DRG 149 ==
LOC: ER 08:08 → 1 SOUTH 11:28 → ICU 20:26
PROVIDERS: ADMIT Internal Medicine; ATTEND Internal Medicine
DX: R42 Dizziness and giddiness (principal); I10 Essential (primary) hypertension; Z88.0 Allergy status to penicillin; D32.9 Benign neoplasm of meninges, unspecified; E78.5 Hyperlipidemia, unspecified; K21.9 Gastro-esophageal reflux disease without esophagitis; Z90.710 Acquired absence of both cervix and uterus; Z90.721 Acquired absence of ovaries, unilateral; Z81.1 Family history of alcohol abuse and dependence; Z82.49 Family history of ischemic heart disease and other diseases of the circulatory system; Z80.1 Family history of malignant neoplasm of trachea, bronchus and lung; Z84.89 Family history of other specified conditions; F41.9 Anxiety disorder, unspecified; R73.9 Hyperglycemia, unspecified; R26.81 Unsteadiness on feet; Z20.828 Contact with and (suspected) exposure to other viral communicable diseases
CPT/HCPCS: 36415; 70450; 70496; 70498; 71045; 80048; 81001; 82947; 83735; 84484; 85007; 85025; 93005; 96360; 96361; 97163; C9113; J1200; J1885; J2930; J3490; 99285-25; J7030; U0003-CS

== ENCOUNTER → 2021-07-17 | Outpatient (CLI) | payer BC, MEDICARE ==
[2020-02-26 20:53] VITALS: BP 172/90
[~2021-07-17] MED LIST: ALPR0.254 PO; AMIT25TA PO; ATOR20TA58 PO; ESOM40CA PO; ESTR1.25 PO; HYDR12.58 PO; LOSA50TA86 PO; METO-247 PO; VALA10008 PO
--- NOTE | 2021-07-17 12:42 | RAD ---
INDICATION: 70 years of age asymptomatic female patient presents for screening mammography. No person al or family history of breast cancer. TECHNIQUE: Full field craniocaudal and mediolateral oblique images of both breasts were obtained usi ng digital technique with tomosynthesis and also analyzed with computer-aided detection software. COMPARISON: Prior mammographic imaging dating back to 07/11/2015. BREAST COMPOSITION: Category B: There are scattered fibroglandular densities. FINDINGS: Right breast: Asymmetry in the medial breast, middle depth appreciated on the CC projection 3-D image 33/52. No suspicious architectural distortion. No suspicious calcifications. Left breast: No suspicious masses, microcalcifications or architectural distortion is present to sugg est malignancy in either breast. The visualized axillae are unremarkable. IMPRESSION: 1. New asymmetry in the medial right breast, middle depth. Additional imaging evaluation with diagnos tic right breast mammogram with 3-D spot compression and possibly follow-up with targeted right breas t ultrasound. 2. No mammographic evidence of malignancy in the left breast. RECOMMENDATION: The patient will be contacted to return for additional imaging and a supplemental rep ort will follow. BIRADS 0: INCOMPLETE - NEED ADDITIONAL IMAGING EVALUATION AND/OR PRIOR MAMMOGRAMS FOR COMPARISON. This study was interpreted with the benefit of Computerized Aided Detection (CAD). Patient information is entered into the reminder system with a target due date for the next screening mammogram. Mammography is the most sensitive method for finding small breast cancers, but it does not detect the m all and is not a substitute for careful clinical examination. A negative mammogram does not negate a clinically suspicious finding and should not result in delay in biopsying a clinically suspicious a bnormality. "Our facility is accredited by the [employer] Mammography Program." Electronically signed by: Tariq Woodward DO (07/17/2021 12:40 PM) [id number]
== END ==
LOC: MAMMO 11:06
PROVIDERS: ATTEND Internal Medicine
DX: Z12.31 Encounter for screening mammogram for malignant neoplasm of breast (principal)
CPT/HCPCS: 77063; 77067

== ENCOUNTER → 2021-07-27 | Outpatient (CLI) | payer BC, MEDICARE ==
[2020-02-26 20:53] VITALS: BP 172/90
--- NOTE | 2021-07-27 12:09 | RAD ---
RIGHT DIAGNOSTIC 2-D AND 3-D MAMMOGRAPHY History: Abnormal screening mammogram. Comparison: Bilateral mammogram 07/17/2021 and prior years. Technique: Right spot compression CC and true lateral and true lateral tomosynthesis digital mammogra m views were obtained. Findings: Breast Tissue Density B : There are scattered areas of fibroglandular density. The small asymmetry of the inner right breast at mid depth resolves with spot compression. No correla te is seen on the true lateral views. IMPRESSION: Resolution of asymmetry with additional mammogram views. Recommend routine mammogram screening. BI-RADS category 1: Negative. The images were reviewed with computer-aided detection. Patient information is entered into the reminder system with a target due date for the next screening mammogram. Mammography is the most sensitive method for finding small breast cancers, but it does not detect the m all and is not a substitute for careful clinical examination. A negative mammogram does not negate a clinically suspicious finding and should not result in delay in biopsying a clinically suspicious a bnormality. "Our facility is accredited by the [employer] Mammography Program." Electronically signed by: Dao Church MD (07/27/2021 12:07 PM) [email or web address]
== END ==
LOC: MAMMO 11:01
PROVIDERS: ATTEND Internal Medicine
DX: R92.2 Inconclusive mammogram (principal)
CPT/HCPCS: 77065